=== PATIENT | male | born 1985 | race Caucasian/White ===

== ENCOUNTER 2020-01-05 16:49 | Emergency (ER) | payer SELFPAY ==
[~2020-01-05] VITALS: Ht 175.3 cm; Wt 64.9 kg
[2020-01-05 16:57] VITALS: Ht 175.3 cm; Wt 64.9 kg
[2020-01-05 18:30] LABS: CALCIUM 9.6 mg/dL (8.5-10.1); CARBON DIOXIDE 29.1 mmol/L (21-32); CHLORIDE SERUM 98 mmol/L (98-107); CREATININE SERUM 1.2 mg/dL (0.7-1.3); GFR1 > 60 mL/min; GLUCOSE SERUM 104 mg/dL (74-106); POTASSIUM SERUM 3.8 mmol/L (3.5-5.1); SODIUM SERUM 136 mmol/L (136-145)
[2020-01-05 18:35] LABS: ALBUMIN 4.7 g/dL (3.4-5.0); ALKALINE PHOSPHATASE 74 U/L (46-116); ALT/SGPT 54 U/L (16-63); AST/SGOT 24 U/L (15-37); BILIRUBIN TOTAL 1.05 mg/dL (0.20-1.00)
[2020-01-05 18:40] LABS: TOTAL PROTEIN, SERUM 8.9 g/dL (6.4-8.2)
[2020-01-05 20:35] VITALS: BP 117/85
== END 2020-01-05 20:35 | disposition home or self-care (01) ==
LOC: ED 16:49
PROVIDERS: Emergency Medicine
DX: E86.0 Dehydration (principal); A05.9 Bacterial foodborne intoxication, unspecified
CPT/HCPCS: J2405; J7030